=== PATIENT | male | born 1940 | race Caucasian/White ===

== ENCOUNTER → 2018-05-18 | Outpatient (CLI) | payer OTHER | END | disposition home or self-care (01) | LOC: PCVCCLINIC 14:54 | PROVIDERS: ATTEND Internal Medicine | DX: I25.10 Atherosclerotic heart disease of native coronary artery without angina pectoris (principal); I10 Essential (primary) hypertension; E78.5 Hyperlipidemia, unspecified; E11.9 Type 2 diabetes mellitus without complications; Z87.891 Personal history of nicotine dependence; Z79.899 Other long term (current) drug therapy | CPT/HCPCS: 93005; G0463 ==

== ENCOUNTER → 2018-06-11 | Outpatient (CLI) | payer OTHER ==
[~2018-06-11] MED LIST: REGADENOSON 0.4 MG/5 ML DISP.SYRIN. IV ONE
--- NOTE | 2018-06-16 09:14 | PCVCIMAG ---
APPROVED REPORT Imaging Protocol: Rest Tc-99m/Stress Tc-99m 1 day Study performed: 06/11/2018 10:14:31 Indication: CAD Patient Location: Out-Patient Stress Nurse: Eryn Jaeger RN LA Tech:Aylin ValadezFELIX navarroMT Ht: 5 ft 4 in Wt: 162 lbs BSA: 1.79 m2 HR: 75 bpm BP: 143/67 mmHg BMI: 27.80 Rhythm: SR Medical History Medical History: HTN, Hyperlipidemia, CAD, Diabetic Noninsulin, Age, Former Smoker Medications: Albuterol, amlodipine, aspirin, hctz, requip, insulin, victoza, lisinopril, pravastatin, metoprolol (held 24h) Allergies: No known drug allergies Previous Cardiac Procedures: PCI post CABG Pretest Chest Pain Characteristics: No chest pain Resting Data Rest SPECT myocardial perfusion imaging was performed in supine position 45 minutes following the intravenous injection of 10.8 mCi of Tc-99m Sestamibi. Time of rest injection: 0940 Date: 06/11/2018 Administration Route: IV Administration Site: Right Arm Pharmacologic Stress Pharmacologic stress test was performed by injecting Regadenoson 0.4 mg IV push over 10-15 seconds immediately followed by the intravenous injection of 34.1 mCi of Tc-99m Sestamibi. Time of stress injection: 1045 Date: 06/11/2018 Administration Route: IV Administration Site: Right Arm Gated Stress SPECT was performed 45 minutes after stress injection. The images were gated to evaluate regional wall motion and calculate left ventricular ejection fraction. Stress Test Details Stress Test: Pharmacologic stress testing performed using 0.4 mg of regadenoson per 5 mL given IV over 10 seconds. Reason for pharmacologic stress test: physical limitation asthma. HRMax Heart Rate (APMHR): 143 bpm Resting HR: 75 bpmTarget HR (85% APMHR): 121 bpm Max HR Achieved: 86 bpm % of APMHR: 60 Recovery HR: 84 bpm BP Resting BP: 143/67 mmHg Recovery BP: 114/55 mmHg ECG Resting ECG: SR Stress ECG: SR Recovery ECG: SR Stress ECG Conclusion 1. Adequate response to intravenous Lexiscan 2. Inadequate heart rate for ECG diagnosis Study Data Post stress, the left ventricular ejection was 41%.. SSS: 27 SRS: 22 SDS: 5 TID = 1.02. Perfusion Decrease uptake in all segments of the myocardium except for the septal wall is noted which is principally non-reversible. The apical portion does have correlating hypo-kinesis consistent with prior scarring. Wall Motion Global hypokinesis with more prominent hypokinesis of the apex and adjacent aaron Nuclear Conclusion ECG Findings: non-diagnostic Clinical Findings: negative for ischemia Nuclear Findings: negative for ischemia although evidence of prior infarction and multivessel coronary artery disease is noted Exercise Capacity: not assessed Left Ventricular Function: abnormal 1. Low risk study based on absence of inducible ischemia. 2. Evidence of cardiomyopathic process with decreased ejection fraction and fix defects in multiple vessel distributions <Conclusion> 1. Adequate response to intravenous Lexiscan 2. Inadequate heart rate for ECG diagnosis
== END | disposition home or self-care (01) ==
LOC: PCVCIMAG 11:15
PROVIDERS: ATTEND Internal Medicine
DX: I25.10 Atherosclerotic heart disease of native coronary artery without angina pectoris (principal); E11.9 Type 2 diabetes mellitus without complications
CPT/HCPCS: 78452; 93017; A9500; J2785

== ENCOUNTER → 2018-07-01 | Outpatient (CLI) | payer OTHER | END | disposition home or self-care (01) | LOC: PCVCCLINIC 14:20 | PROVIDERS: ATTEND Internal Medicine | DX: I25.10 Atherosclerotic heart disease of native coronary artery without angina pectoris (principal); E78.5 Hyperlipidemia, unspecified; I10 Essential (primary) hypertension; E11.9 Type 2 diabetes mellitus without complications; I73.9 Peripheral vascular disease, unspecified; Z79.4 Long term (current) use of insulin; Z79.899 Other long term (current) drug therapy; Z87.891 Personal history of nicotine dependence | CPT/HCPCS: G0463 ==

== ENCOUNTER → 2019-07-04 | Outpatient (CLI) | payer OTHER | END | disposition home or self-care (01) | LOC: PCVCCLINIC 10:10 | PROVIDERS: ATTEND Internal Medicine | DX: I25.10 Atherosclerotic heart disease of native coronary artery without angina pectoris (principal); I73.9 Peripheral vascular disease, unspecified; E11.9 Type 2 diabetes mellitus without complications; I49.3 Ventricular premature depolarization; R42 Dizziness and giddiness; R94.31 Abnormal electrocardiogram [ECG] [EKG]; Z79.82 Long term (current) use of aspirin; Z79.899 Other long term (current) drug therapy; Z87.891 Personal history of nicotine dependence | CPT/HCPCS: 36415; 80061; 93005; G0463 ==

== ENCOUNTER → 2019-08-11 | Outpatient (CLI) | payer OTHER ==
--- NOTE | 2019-08-12 13:03 | PCVCIMAG ---
APPROVED REPORT Study performed: 08/11/2019 15:04:34 EXAM: Comprehensive 2D, Doppler, and color-flow Echocardiogram Patient Location: Echo lab Room #: 2Status: routine BSA: 1.77 HR: 64 bpmBP: 110/58 mmHg Rhythm: sinus rhythm,bigeminy PVCs Other Information Study Quality: Adequate Risk Factors: Cardiac Risk Factors: DM Indications Diabetes Dizziness and Vertigo CAD Cardiomyopathy Fatigue S/P CABG, Coronary stents 2D Dimensions IVSd: 12.11 (7-11mm)LVOT Diam: 19.81 (18-24mm) LVDd: 57.43 mm PWd: 11.51 (7-11mm)Ascending Ao: 30.49 (22-36mm) LVDs: 42.05 (25-40mm) Left Atrium: 42.76 (27-40mm) Aortic Root: 22.59 mm LV Single Plane 4CH: 43.52 % LV Single Plane 2CH: 32.37 % Biplane EF: 39.7 % Volumes Left Atrial Volume (Systole) Single Plane 4CH: 34.63 mLSingle Plane 2CH: 21.92 mL Biplane LA Volume: 28.00 mLLA ESV Index: 16.00 mL/m2 Aortic Valve AoV Peak Mustapha.: 1.45 m/s AO Peak Gr.: 8.38 mmHgLVOT Max P.11 mmHg LVOT Max V: 0.88 m/s MARY Vmax: 1.88 cm2 Mitral Valve E/A Ratio: 1.1 MV Decel. Time: 229.51 ms MV E Max Mustapha.: 0.69 m/s MV A Mustapha.: 0.61 m/s IVRT: 107.27 ms Pulmonary Valve PV Peak Mustapha.: 1.06 m/sPV Peak Gr.: 4.49 mmHg Tricuspid Valve TR Peak Mustapha.: 2.22 m/s TR Peak Gr.: 19.64 mmHg TV Vmax: 0.59 m/sPA Pressure: 27.00 mmHg Left Ventricle Left ventricle is borderline dilated. There is global hypokinesis of the left ventricle. Mild concentric left ventricular hypertrophy. Left ventricular ejection fraction is mildly decreased. LVEF is 40%. Frequent arrhythmia makes diastolic assessment inaccurate. Right Ventricle The right ventricle is normal size. The right ventricular systolic function is normal. Atria The left atrium size is normal. The right atrium size is normal. Aortic Valve Aortic valve is trileaflet. The aortic valve is normal in structure and function. Minimally sclerotic leaflets No aortic regurgitation is present. There is no aortic valvular stenosis. Mitral Valve The mitral valve is normal in structure. There is no mitral valve regurgitation noted. No evidence of mitral valve stenosis. Tricuspid Valve The tricuspid valve is normal in structure. Mild tricuspid regurgitation with a PA pressure of 27 mmHg. Pulmonic Valve The pulmonary valve is normal in structure. Mild to moderate pulmonic regurgitation. Great Vessels The aortic root is normal in size. IVC is normal in size and collapses >50% with inspiration. Pericardium There is no pericardial effusion. There is no pleural effusion. <Conclusion> Left ventricle is borderline dilated. LVEF is 40%. There is global hypokinesis of the left ventricle. Aortic valve is trileaflet. The aortic valve is normal in structure and function. Minimally sclerotic leaflets The mitral valve is normal in structure. The tricuspid valve is normal in structure. Mild tricuspid regurgitation with a PA pressure of 27 mmHg. The pulmonary valve is normal in structure. Mild to moderate pulmonic regurgitation. There is no pericardial effusion.
== END | disposition home or self-care (01) ==
LOC: PCVCIMAG 14:05
PROVIDERS: ATTEND Internal Medicine
DX: I08.8 Other rheumatic multiple valve diseases (principal); I25.10 Atherosclerotic heart disease of native coronary artery without angina pectoris; E11.9 Type 2 diabetes mellitus without complications; I49.9 Cardiac arrhythmia, unspecified; I42.9 Cardiomyopathy, unspecified; R42 Dizziness and giddiness; R53.83 Other fatigue; Z95.1 Presence of aortocoronary bypass graft
CPT/HCPCS: 93306